=== PATIENT | male | born 1960 | race Caucasian/White ===

== ENCOUNTER 2023-07-03 06:47 | Day surgery (SDC) | payer SELFPAY ==
[~2023-07-03 06:47] MED LIST: Acetaminophen 1,000 MG in Premix Bag 1 BAG IV SCH; Lactated Ringers 1,000 ML IV SCH; Pregabalin 75 MG Cap PO SCH; ceFAZolin 2 GM in Sodium Chloride 0.9% 50 ML IV ONE
[2023-07-03] MEDS ORDERED: Dexamethasone 4 MG/ML 5 ML MDV ONE (06:58)
[2023-07-03] MEDS ORDERED: Ketorolac 30 MG/ML SDV ONE (06:58)
[2023-07-03] MEDS ORDERED: Rocuronium Bromide 50 MG/5 ML Syringe ONE (06:58)
[2023-07-03] MEDS ORDERED: Ondansetron 4 MG/2 ML SDV ONE (06:58)
[2023-07-03] MEDS ORDERED: Magnesium Sulfate (4.06 MEQ/ML) 5 GM/10 ML SDV ONE (06:58)
[2023-07-03] MEDS ORDERED: fentaNYL 100 MCG/2 ML SDV ONE (06:58)
[2023-07-03] MEDS ORDERED: Lidocaine 2% 11 ML Jelly Filled Syringe ONE (06:58)
[2023-07-03] MEDS ORDERED: Lidocaine 2% 5 ML SDV ONE (06:58)
[2023-07-03] MEDS ORDERED: Morphine 10 MG/ML SDV ONE (06:58)
[2023-07-03] MEDS ORDERED: Sugammadex Sodium 200 MG/2 ML VIAL ONE (06:58)
[2023-07-03] MEDS ORDERED: propofoL 200 ML ONE (07:02)
[2023-07-03] MEDS ORDERED: droPERidol 5 MG/2 ML SDV IVPUSH PRN (07:06)
[2023-07-03] MEDS ORDERED: Naloxone 0.4 MG/ML SDV IVPUSH PRN (07:06)
[2023-07-03] MEDS ORDERED: HYDROmorphone 1 MG/ML Syringe IVPUSH PRN (07:06)
[2023-07-03] MEDS ORDERED: Ondansetron 4 MG/2 ML SDV IVPUSH PRN (07:06)
[2023-07-03] MEDS ORDERED: fentaNYL 50 MCG/ML SDV IVPUSH PRN (07:06)
[2023-07-03] MEDS ORDERED: Metoclopramide 10 MG/2 ML SDV IVPUSH PRN (07:06)
[2023-07-03] MEDS ORDERED: Albuterol 0.083% 2.5 MG/3 ML Neb Soln NEB PRN (07:06)
[2023-07-03] MEDS ORDERED: Morphine 2 MG/ML SYRINGE IVPUSH PRN (07:06)
[2023-07-03] MEDS ORDERED: Scopalamine 1mg/3day Transdermal Patch ONE (07:30)
[2023-07-03] MEDS ORDERED: ceFAZolin 2 GM Vial ONE (07:31)
[2023-07-03] MEDS ORDERED: Bupivacaine 0.5% 30 ML SDV ONE (07:40)
[2023-07-03] MEDS ORDERED: Ropivacaine 0.5% 5 MG/ML 30 ML SDV ONE (07:41)
[2023-07-03] MEDS ORDERED: Phenylephrine 1% 10 MG/ML SDV ONE (08:18)
[2023-07-03] MEDS ORDERED: Glycopyrrolate 0.2 MG/ML SDV ONE (08:18)
[2023-07-03] MEDS ORDERED: Calcium Chloride 10% 1 GM/10 ML Syringe ONE (08:18)
== END 2023-07-03 13:00 | disposition home or self-care (01) ==
LOC: MW.SDS 06:47
PROVIDERS: ATTEND Surgery
DX: K40.20 Bilateral inguinal hernia, without obstruction or gangrene, not specified as recurrent (principal); K42.9 Umbilical hernia without obstruction or gangrene; D17.6 Benign lipomatous neoplasm of spermatic cord; Z79.899 Other long term (current) drug therapy
CPT/HCPCS: 49591; 49650; 64486; A9270; J0131; J0665; J0690; J1100; J1885; J2270; J2371; J2704; J2795; J3010; J3475; J3490; J7120; C1781; J2405